=== PATIENT | male | born 1970 | race Two or more races ===

== ENCOUNTER 2020-06-02 19:32 | Observation (INO) | payer MEDICAID ==
[~2020-06-02] VITALS: Ht 170.2 cm; Wt 88.5 kg
--- NOTE | ~2020-06-02 | HEMODYNAMI ---
PATIENT:ORLY LAMB MEDICAL RECORD: [id number] : 68 LOCATION:[facility] D.2120 ADMISSION DATE: 06/02/20 Generatedon:06/03/20209:59 Patient name: ORLY LAMB Patient #: [id number] SSN: : 1970 Date of study: 06/03/2020 Page: Of Hemodynamic Procedure Report Patient Data Patient Demographics Procedure consent was obtained First Name: ORLY Gender: Male Last Name: ADONIS : 1970 Patient #: [id number] Age: 50 year(s) Race: Other Additional ID: [id number] Contact details Address: [place]KNOWN,[place]KNOWN State: [place] City: [facility] Zip code: [address] Past Medical History Allergies Allergen Reaction Date Comments Reported Other allergy 06/03/2020 PCN Admission Admission Data Admission Date: 06/02/2020 Admission Time: 20:55 Room #: D.2120 Height (in.): 67 BSA: 2 (m2) Height (cm.): 170.18 BMI: 30.54 (kg/m2) Weight (lbs.): 195 Weight (kg.): 88.45 Lab Results Lab Result Date: 06/03/2020 Lab Result Time: 0:00 Biochemistry Name Units Result Min Max BUN mg/dl 12 --(-*--)-- 7 18 Creatinine mg/dl 0.8 --(-*--)-- 0.6 1.3 eGFR ml/min 90 --(*---)-- 90 120 NONAFRICAN CBC Name Units Result Min Max Hematocrit % 45.6 --(-*--)-- 42 54 Hemoglobin g/dl 15.6 --(--*-)-- 13.5 17.5 Procedure Procedure Types Cath Procedure Diagnostic Procedure LHC LH w/Coronaries Sedation Charges Moderate Sedation up to 15 minutes PCI Procedure Coronary Stent Coronary Stent Initial Hemochron ACT Test Procedure Description Procedure Date Procedure Date: 06/03/2020 Procedure Start Time: 9:37 Procedure End Time: 9:57 Procedure Staff Name Function Messi Acosta MD Performing Physician Tammie Schilling RN Nurse Violeta Hernandez RT Monitor Neeta Moreno RT Monitor Debbie Silver RT Scrub Procedure Data Cath Procedure Fluoroscopy Diagnostic fluoroscopy Total fluoroscopy Time: 3 time: 3 min min Diagnostic fluoroscopy Total fluoroscopy dose: 772 dose: 772 mGy mGy Contrast Material Contrast Material Type Amount (ml) Isovue 300 82 Entry Location Entry Primary Successful Side Size Upsize Upsize Entry Closure Succes sful Closure Location (Fr) 1 (Fr) 2 (Fr) Remarks Device Remarks Femoral Right 5 Fr 6 Fr Exoseal artery Short Estimated blood loss: 10 ml Diagnostic catheters Device Type Used For End Catheter Placement MULTIPACK JL 4.0 5Fr Left Coronary catheter Angiography MULTIPACK 3DRC 5Fr Right Coronary catheter Angiography MULTIPACK Pigtail 5 Fr LV Angiography catheter Procedure Complications No complications Procedure Medications Medication Administration Route Dosage 0.9% NaCl I.V. 100 ml/hr Oxygen etCO2 Nasal cannula 2 l/min Lidocaine 2% added to field 20 Heparin Flush Bag added to field 2 bags (1000units/500ml NS) Versed I.V. 2 mg Fentanyl I.V. 50 mcg Heparin Bolus I.V. 5000 units Integrilin (Bolus I.V. 7.9 ml 2mg/ml) Plavix P.O. 600 mg Integrilin (Bolus wasted 2.1 ml 2mg/ml) Hemodynamics Rest BSA: 2 (m2) HGB: 15.6 (g/dl) O2 Consumption: Estimated: 240.31 (ml/min) O2 Consu mption indexed: Estimated:120.16 (ml/min/m) Heart Rate: 72 (bpm) Pressure Samples Time Site Value (mmHg) Purpose Heart Use Rate(bpm) 9:45 LV 97/0,3 Snapshot 74 Gradients Valve Time Site Site Mean SEP/DFP Peak To Heart Use 1 2 (mmHg) (sec/min) Peak Rate (mmHg) (bpm) Aortic 9:45 LV AO 73 Snapshots Pre Cath Intra NCS Post Cath Vital Signs Time Heart Resp SPO2 etCO2 NIBP (mmHg) Rhythm Pain Sedation Rate (ipm) (%) (mmHg) Status Level (bpm) 9:28:15 65 18 96 33.7 124/78(95) NSR 0 (11) 10(A) , No pain 9:32:33 77 16 97 33 121/71(86) NSR 0 (11) 10(A) , No pain 9:37:32 79 14 98 41.2 Measuring NSR 0 (11) 10(A) , No pain 9:37:40 87 16 98 33.7 117/80(90) NSR 0 (11) 10(A) , No pain 9:41:53 67 19 97 2.2 116/79(106) NSR 0 (11) 10(A) , No pain 9:46:04 76 18 97 44.9 127/80(102) NSR 0 (11) 10(A) , No pain 9:50:20 79 10 97 41.1 126/78(98) NSR 0 (11) 10(A) , No pain 9:54:28 86 10 98 34.4 111/77(107) NSR 0 (11) 10(A) , No pain Medications Time Medication Route Dose Verified Delivered Reason Notes Effectiveness by by 9:28:18 0.9% NaCl I.V. 100 Messi Tammie used for ml/hr Salley Shakir procedure MD POE 9:28:25 Oxygen etCO2 2 Messi Tammie used for Nasal l/min [facility] procedure cannula MD POE 9:28:31 Lidocaine 2% added 20ml Messi Swenson for local to vial [facility] anesthetic field MD BERMUDEZ 9:28:36 Heparin Flush added 2 Messi Messi used for Bag to bags [facility] procedure (1000units/500ml field MD BERMUDEZ NS) 9:34:57 Versed I.V. 2 mg Messi Tammie for sedation [facility] Osvaldo Schilling MD RN 9:35:02 Fentanyl I.V. 50 Messi Tammie for sedation mcg [facility] Osvaldo Schilling MD RN 9:48:03 Heparin Bolus I.V. 5000 Messi Tammie for verifi ed units DaveOsvaldo Schilling anticoagulation with Dr. MD POE [place] 9:48:15 Integrilin I.V. 7.9 Messi Tammie for (Bolus 2mg/ml) ml [facility] Osvaldo Schilling antiplatelet RN therapy 9:49:27 Plavix P.O. 600 Messi Tammie for mg [facility] Osvaldo Schilling antiplatelet RN therapy 9:49:35 Integrilin wasted 2.1 Messi Tammie for (Bolus 2mg/ml) ml St Osvaldo marques MD RN therapy Procedure Log Time Note 9:01:20 Informed consent obtained and on chart 9:02:10 Procedure Status Urgent Heart Cath (IP). 9:02:12 Time tracking: Regular hours (M-F 7:00 - 5:00) 9:02:17 Plan of Care:Hemodynamics will remain stable., Cardiac rhythm will remain stable., Comfort level will be maintained., Respiratory function will remain adequate., Patient/ family verbilizes understanding of procedure., Procedure tolerated without complication., Recovers from procedure without complications.. 9:02:22 H&P Date Dictated: 06/02/2020 ER History on chart.. 9::28 Lab Result : BUN 12 mg/dl 9::28 Lab Result : eGFR NONAFRICAN 90 ml/min 9::28 Lab Result : Creatinine 0.8 mg/dl 9::28 Lab Result : Hematocrit 45.6 % 9:05:28 Lab Result : Hemoglobin 15.6 g/dl 9:05:40 Patient Weight : 195 lbs 9:05:44 Patient Height : 67 inches 9:12:34 Neeta Moreno RT(R) sent for patient. Start room use. 9:27:04 Patient received from Med II to CCL 1 Alert and oriented. Tansferred to table in Supine position. 9:27:05 Warm blankets applied, and lamar hugger turned on for patient comfort. 9:27:06 Correct patient and procedure confirmed by team. 9:27:07 ECG and BP/O2 sat monitors applied to patient. 9:27:09 Vital chart was started 9:27:17 Baseline sample Acquired. 9:27:25 Rhythm: sinus rhythm 9:27:26 Full Disclosure recording started 9::27 9:27:28 Pre-procedure instructions explained to patient. 9:27:29 Pre-op teaching completed and patient verbalized understanding. 9:27:34 Family in patients room. 9:27:37 Patient NPO since Midnight. 9:27:59 Patient allergic to Other allergyPCN 9:28:04 Is the patient allergic to Iodine/contrast media? No. 9:28:10 Was the patient premedicated? No 9:28:18 0.9% NaCl 100 ml/hr I.V. was administered by Tammie Schilling RN; used for procedure; Verbal order read back and verified. 9:28:18 ACC The patient was administered the following blood thiners within the last 24 hours: ACCLovenox 9:28:23 Patient diabetic? Yes. 9:28:25 Oxygen 2 l/min etCO2 Nasal cannula was administered by Tammie Schilling RN; used for procedure; Verbal order read back and verified. 9:28:26 If diabetic: On Metformin? Yes 9:28:31 Lidocaine 2% 20ml vial added to field was administered by Messi Acosta MD; for local anesthetic; Verbal order read back and verified. 9:28:34 If on Metformin: Last Dose? 06/02/2020 9:28:36 Heparin Flush Bag (1000units/500ml NS) 2 bags added to field was administered by Messi Acosta MD; used for procedure; Verbal order read back and verified. 9:28:39 ----Pre-sedation anethsthesia assessment.---- 9:28:44 Previous problem with sedation/anesthesia? No ? 9:28:46 Snore? Yes 9:28:49 Sleep apnea? No 9:28:53 Opens mouth fully? Yes 9:28:56 Sticks out tongue? Yes 9:28:59 Airway obstruction? No ? 9:29:04 Dentures? No ? 9:29:15 Pre procedure: right dorsailis pedis pulse 2+ Normal; easily identifiable; not easily obliterated 9:29:29 IV patent on arrival in left forearm with 0.9% NaCl at [facility]. 9:29:41 Lab results completed and on chart. 9:29:49 Right groin area was prepped with chlora-prep and draped in sterile fashion 9:29:52 Alarms reviewed by R. N. 9:29:53 Sharps counted by scrub and verified by R.N. 9:30:00 Use device set Femoral Dx 9:30:01 ACIST Syringe (10278) opened to sterile field. 9:30:02 Bag Decanter (2001S) opened to sterile field. 9:30:02 Medline Cath Pack ([id number]) opened to sterile field. 9:30:04 ACIST Hand Control (95544) opened to sterile field. 9:30:04 ACIST Manifold (13164) opened to sterile field. 9:30:06 DIAGNOSTIC Multipack 5Fr catheter set ([id number]) opened to sterile field. 9:30:06 Tegaderm 4 x 4 (1626W) opened to sterile field. 9:30:08 SHEATH 5FR [place] (LDH532) opened to sterile field. 9:30:08 EMERALD Guide Wire (253-585) opened to sterile field. 9:31:18 Physician arrived 9:31:19 --------ALL STOP TIME OUT------ 9:31:19 Final Timeout: patient, procedure, and site verified with staff and physician. All members of the team are in agreement. 9:31:22 Right groin site verified by team. 9:31:29 Fire Safety Assessment: A--An alcohol-based skin anteseptic being used preoperatively., C--Open oxygen or nitrous oxide is being used., D--An ESU, laser, or fiber-optic light is being used. 9:31:32 Physical assessment completed. ASA score P 2 - A patient with mild systemic disease as per Messi Acosta MD. 9:31:38 1) 90+ Normal kidney functon but urine findings or structural abnormalities or genetic trait point to kidney disease. 9:31:42 Maximum allowable contrast dose (3.7 X eGFR X 0.75)250 ml. 9:31:50 Sedation plan: IV Moderate Sedation Medication:Versed, Fentanyl 9:34:57 Versed 2 mg I.V. was administered by Tammie Schilling RN; for sedation; Verbal order read back and verified. 9:35:02 Fentanyl 50 mcg I.V. was administered by Tammie Schilling RN; for sedation; Verbal order read back and verified. 9:36:35 Risk of Mortality: 0.1 9:36:40 Risk of blood transfusion: 0.1 9:36:44 Risk of GABI: 0.4 9:36:50 Procedure started. 9:37:34 Local anesthetic to right femoral artery with Lidocaine 2% by Messi Acosta MD.INITIAL ACCESS ONLY 9:37:45 Zero performed for pressure channel P1 9:38:05 Zero performed for pressure channel P1 9:38:28 A 5 Fr sheath was inserted into the Right Femoral artery 9:38:35 A MULTIPACK JL 4.0 5Fr catheter was advanced over the wire and used for Left Coronary Angiography. 9:39:23 LCA angiography performed. 9:39:31 Injector settings: Ml/sec: 3, Volume: 6, 9:42:46 Catheter removed. 9:43:16 INFLATOR Merit BasixCompak (QM9388) opened to sterile field. 9:43:18 SHEATH 6FR [place] (JXO273) opened to sterile field. 9:43:31 WHISPER 300cm guide wire ([id number]) opened to sterile field. 9:44:20 GUIDE 6FR XB 3.5 catheter ([id number]) opened to sterile field. 9:44:34 A MULTIPACK 3DRC 5Fr catheter was advanced over the wire and used for Right Coronary Angiography. 9:44:38 RCA angiography performed. 9:44:42 Injector settings: Ml/sec: 3, Volume: 6, 9:44:46 Catheter removed. 9:44:51 A MULTIPACK Pigtail 5 Fr catheter was advanced over the wire and used for LV Angiography. 9:45:33 EF : 55 % 9:45:38 LV gram done using MONGE 9:45:42 Injector settings: Ml/sec: 5, Volume: 15, 9:45:46 Catheter removed. 9:45:47 Proceeding to intervention. 9:45:54 ACC Pre-intervention FROY Flow is 3. 9:46:16 Sheath upsized to a 6 Fr Short. 9:46:47 Pre PCI Site: [place] pCirc has 90% stenosis. 9:46:56 6 Fr XB3.5 guide catheter was inserted over the wire 9:47:21 LCA angiography performed. 9:48:03 Heparin Bolus 5000 units I.V. was administered by Tammie Schilling RN; for anticoagulation; verified with Dr. Pittman Verbal order read back and verified. 9:48:15 Integrilin (Bolus 2mg/ml) 7.9 ml I.V. was administered by Tammie Shakir RN; for antiplatelet therapy; Verbal order read back and verified. 9:49:27 Plavix 600 mg P.O. was administered by Tammie Schilling RN; for antiplatelet therapy; Verbal order read back and verified. 9:49:31 WHISPER 300 wire advanced. 9:49:35 Integrilin (Bolus 2mg/ml) 2.1 ml wasted was administered by Tammie Schilling RN; for antiplatelet therapy; Verbal order read back and verified. 9:51:55 Place stent Inflation Number: 1 A TRE OTW 3.0 x 18 stent ([id number]) was prepped and advanced across the Prox CX . The stent was deployed at 14 [place] for 0:33 (min:sec) . 9:52:36 Stent catheter was removed intact over wire. 9:52:39 ACC Post-intervention FROY Flow is 3. 9:52:48 Post PCI Site: [place] pCirc has 0% stenosis. 9:52:51 Wire removed. 9:52:52 Guide catheter removed. 9:53:02 EXOSEAL 6Fr (EX600) opened to sterile field. 9:53:41 Sheath removed intact; hemostasis achieved with Exoseal to the Right Femoral artery. 9:53:44 Procedure ended.(Physican Out) 9:53:51 Contrast amount:Isovue 300 82ml. 9:53:55 Maximum allowable dose exceeded? No. 9:53:57 Sharps counted by scrub and verified by R.N. 9:54:04 Fluoroscopy time 03.00 minutes. 9:54:09 Fluoroscopy dose: 772 mGy 9:54:09 Flurop Dose total: 772 9:54:18 Dose Area Product 64809 mGy/cm. 9:54:26 Post-op/insertion site Right Femoral artery dressed using a 4 x 4 and Tegaderm. 9:54:33 Post-procedure physical assessment completed. ASA score P 2 - A patient with mild systemic disease as per Messi Acosta MD. 9:54:38 Post procedure rhythm: unchanged. 9:54:42 Estimated blood loss: 10 ml 9:54:43 Post procedure instruction explained to patient.Patient verbalizes understanding. 9:54:44 Patient needs reinforcement of post procedure teaching. 9:55:17 ACT drawn and resulted at 230 seconds. (normal therapeutic range 180-240 seconds). 9:55:48 Procedure type changed to Cath procedure, Diagnostic procedure, LHC, C w/Coronaries, Sedation Charges, Moderate Sedation up to 15 minutes, PCI procedure, Coronary Stent, Coronary Stent Initial, Hemochron ACT Test 9:55:50 Procedure and supply charges have been captured, reviewed, submitted and are correct. 9:56:35 Procedure Complication : No complications 9:56:38 Vital chart was stopped 9:56:46 [facility] Findings: MVD- PCI performed (see procedure note) 9:56:48 Operative report dictated upon procedure completion. 9:56:49 See physician's report for complete and final results. 9:56:51 Report given to [facility]. 9:56:56 Patient transfered to [facility] with Bed. 9:56:59 Procedure ended. 9:56:59 Full Disclosure recording stopped 9:57:08 ACC-PCI Only Patient was given prescriptions, or instructed by Messi Acosta MD to start/continue the following medications upon discharge: Plavix 9:57:11 End room use (Document Last) Intervention Summary Intervention Notes Time ActionType Lesion and Equipment Action# Pressure Duration Attributes Used 9:51:55 Place stent Prox CX TRE OTW 3.0 1 14 00:33 x 18 stent ([id number]) Device Usage Item Name Manufacture Quantity Catalog Hospital Part Current Mini [facility] Lot# / Number Charge Number Stock Stock Serial# Code ACIST Syringe Acist 1 68101 688611 936684 640576 20 (59980) Medical Systems Inc Bag Decanter Microtek 1 2001S 930102 59956 547618 5 () Medical Inc. Medline Cath Medline 1 [id number] 303110 58773 843597 5 Pack ([id number]) ACIST Hand Acist 1 66718 272279 097926 352225 5 Control Medical (81076) Systems Inc ACIST Acist 1 95339 214929 795609 127713 5 Manifold Medical (33156) Systems Inc DIAGNOSTIC Cardinal 1 [id number] 171768 04559 685539 30 Multipack 5Fr Health catheter set (YO7640) Tegaderm 4 x 3M 1 1626W 288892 183913 399189 5 4 (1626W) SHEATH 5FR Terumo 1 IAI046 156966 034927 634041 5 [place] (XAL423) EMERALD Guide Cardinal 1 502455 456961 683424 808722 5 Wire Health (502455) MULTIPACK JL Cardinal 1 976177 5 4.0 5Fr Health catheter INFLATOR Merit 1 FU2387 831705 179473 012472 15 [facility] Medical BasixCompak (WJ0663) SHEATH 6FR Terumo 1 SSN194 380409 693248 335397 40 [place] (JDJ324) WHISPER 300cm William 1 [id number] 590499 815341 332591 5 guide wire Vascular ([id number]) GUIDE 6FR XB Cardinal 1 [id number] 634922 273141 667535 2 3.5 catheter Health (66022346) MULTIPACK Cardinal 1 763638 5 3DRC 5Fr Health catheter MULTIPACK Cardinal 1 300890 5 Pigtail 5 Fr Health catheter TRE OTW 3.0 Medtronic 1 [id number] 600395 0953578 016052 5 [id number] x 18 stent ([id number]) EXOSEAL 6Fr Cardinal 1 EX600 307800 684162 846746 10 (EX600) Health Signature Audit [place] Stage Time Signature Unsigned Intra-Procedure 06/03/2020 Debbie 9:57:32 AM Adrianne RT(R) (CV) Intra-Procedure 06/03/2020 Tammie Schilling 9:58:11 AM RN Intra-Procedure 06/03/2020 Messi Carroll 9:59:10 AM Osvaldo BERMUDEZ [facility] [address] [place] [address]
[2020-06-02] MEDS ORDERED: BP MED (19:44)
[2020-06-02] MEDS ORDERED: GLUCOPHAGE500 MG PO (19:44)
[2020-06-02 20:04] LABS: BASOPHILS 0.2 % (0-2); EOSINOPHILS 0.5 % (0-7); HEMATOCRIT 45.6 % (42.0-54.0); HEMOGLOBIN 15.6 g/dL (13.5-17.5); IMMATURE GRANULOCYTES 0.2 % (0-5); LYMPHOCYTES 37.2 % (15-50); MCH 31.1 pg (26.0-34.0); MCHC 34.2 g/dL (31.0-37.0); MEAN PLATELET VOLUME 8.6 fL (7.4-10.4); MONOCYTES 6.4 % (2-11); NEUTROPHILS 55.5 % (40-80); PLATELET COUNT 213 10x3/uL (130-400); RBC 5.01 10x6/uL (4.20-6.10); WBC 9.1 10x3/uL (4.8-10.8)
[2020-06-02 20:14] LABS: CALC OSMOLALITY 270 mosm/kg (275-300); CALCIUM 10.1 mg/dL (8.5-10.1); CARBON DIOXIDE 26.6 mmol/L (21.0-32.0); CHLORIDE - SERUM 100 mmol/L (98-107); CREATININE - SERUM 0.8 mg/dL (0.6-1.3); GLUCOSE 120 mg/dL (74-106); POTASSIUM - SERUM 3.5 mmol/L (3.5-5.1); SODIUM 135 mmol/L (136-145); UREA NITROGEN 12 mg/dL (7-18); eGFR NON AFRICAN AMERICAN > 90 mL/min (90-120)
[2020-06-02 20:20] LABS: APTT 26.1 SECONDS (22.8-39.4); INR 1.03 (0.85-1.17); PROTIME 13.4 SECONDS (11.6-15.0)
[2020-06-02 20:35] LABS: ALBUMIN 3.9 g/dL (3.4-5.0); ALKALINE PHOSPHATASE 85 U/L (30-120); ALT (SGPT) 31 U/L (10-68); BILIRUBIN - TOTAL 0.56 mg/dL (0.2-1.3); CKMB 2.8 U/L (0.0-3.6); CREATINE KINASE 192 UL (21-232); PRO BNP 283 pg/mL (0-125); PROTEIN - SERUM 7.7 g/dL (6.4-8.2)
[2020-06-02 20:39] LABS: TROPONIN-I 0.149 ng/mL (0.000-0.060)
[2020-06-02 21:17] VITALS: BP 142/96
--- NOTE | 2020-06-02 21:23 | NUR ---
ANSWERED PT'S CALL LIGHT, PT GIVEN URINAL, DENIES ANY FURTHER NEEDS AT THIS TIME. WILL CONTINUE TO MONITOR.
--- NOTE | 2020-06-02 22:11 | NUR ---
PT GIVEN SANDWICH AND MILK, DENIES ANY FURTHER NEEDS AT THIS TIME. CALL LIGHT WITHIN REACH. WILL CONTINUE TO MONITOR.
[2020-06-02 22:45] VITALS: BP 134/90
--- NOTE | 2020-06-02 22:49 | NUR ---
REPORT CALLED TO ANGEL, PT'S ROOM DIRTY. WILL CALL WHEN CLEAN.
--- NOTE | 2020-06-02 23:40 | NUR ---
PT'S ROOM STILL DIRTY AT THIS TIME.
[2020-06-03 00:29] VITALS: BP 126/87
[2020-06-03] MEDS ORDERED: LIPITOR20 MG PO (01:46)
[2020-06-03] MEDS ORDERED: LISINOPRIL20 MG PO (01:46)
[2020-06-03] MEDS ORDERED: GLIPIZIDE10 MG PO (01:47)
[2020-06-03 02:02] LABS: CKMB 7.5 U/L (0.0-3.6); CREATINE KINASE 188 UL (21-232)
[2020-06-03 02:05] LABS: TROPONIN-I 0.912 ng/mL (0.000-0.060)
--- NOTE | 2020-06-03 02:18 | NUR ---
DR. SPICER CALLED FOR JUMP IN TROPONIN. IT WENT FROM 0.[address] SPICER SAID HE WOULD SEE THEM IN THE MORNING.
[2020-06-03 02:41] VITALS: BP 112/74
[2020-06-03 04:00] VITALS: BP 121/71
--- NOTE | 2020-06-03 05:06 | NUR ---
PATIENT IS RESTING COMFORTABLLY IN BED. HE HAS NO COMPLAINTS. HIS TROPONINS HAVE GONE UP. WE WILL CONTINUE TO MONITOR HIS CHEST AND NECK PRESSURE, AND HIS TROPONINS.
[2020-06-03 07:45] LABS: CKMB 11.7 U/L (0.0-3.6); CREATINE KINASE 205 UL (21-232)
[2020-06-03 07:46] LABS: TROPONIN-I 3.189 ng/mL (0.000-0.060)
[2020-06-03 09:01] LABS: BASOPHILS 0.4 % (0-2); EOSINOPHILS 1.1 % (0-7); HEMATOCRIT 43.1 % (42.0-54.0); HEMOGLOBIN 14.6 g/dL (13.5-17.5); IMMATURE GRANULOCYTES 0.2 % (0-5); LYMPHOCYTES 38.3 % (15-50); MCHC 33.9 g/dL (31.0-37.0); MCV 91.5 fL (80.0-100.0); MEAN PLATELET VOLUME 9.2 fL (7.4-10.4); MONOCYTES 6.4 % (2-11); NEUTROPHILS 53.6 % (40-80); PLATELET COUNT 230 10x3/uL (130-400); RBC 4.71 10x6/uL (4.20-6.10); RDW 12.2 % (11.5-14.5); WBC 8.5 10x3/uL (4.8-10.8)
[2020-06-03 09:20] LABS: ALT (SGPT) 28 U/L (10-68); CALC OSMOLALITY 277 mosm/kg (275-300); CARBON DIOXIDE 25.3 mmol/L (21.0-32.0); CHLORIDE - SERUM 102 mmol/L (98-107); CHOL - HDL RATIO 4.2 ratio (2.3-4.9); CHOLESTEROL, TOTAL 134 mg/dL (0-200); CREATININE - SERUM 0.9 mg/dL (0.6-1.3); GLUCOSE 172 mg/dL (74-106); HDL CHOLESTEROL 32 mg/dL (32-96); LDL CHOLESTEROL 60 mg/dL (0-100); LDL-HDL RATIO 1.9 ratio (1.5-3.5); SODIUM 137 mmol/L (136-145); TRIGLYCERIDE 211 mg/dL (30-200); UREA NITROGEN 13 mg/dL (7-18); eGFR NON AFRICAN AMERICAN > 90 mL/min (90-120)
[2020-06-03 09:21] LABS: POTASSIUM - SERUM 4.4 mmol/L (3.5-5.1)
[2020-06-03 09:26] VITALS: BP 103/60
--- NOTE | 2020-06-03 10:10 | NUR ---
RECEIVED PT FROM CT SCAN TECHNICIAN. RIGHT FEM IS C/D/I WITH NO S/S OF HEMATOMA PRESENT. NO S/S OF DISTRESS. VSS AND WNL. NS INFUSING @100ML/HR VIA L.AC PIV. WILL CTM.
[2020-06-03 12:00] VITALS: BP 96/54
[2020-06-03 12:38] VITALS: Ht 170.2 cm; Wt 88.5 kg
[2020-06-03] MEDS ORDERED: PLAVIX75 MG PO (15:02)
[2020-06-03] MEDS ORDERED: ASPIRIN81 MG PO (15:09)
--- NOTE | 2020-06-03 15:37 | NUR ---
PT DISCHARGED HOME VIA WHEELCHAIR WITH FAMILY. PIV REMOVED WITH CATHETER TIP FULLY INTACT. TELEMETRY REMOVED AND RETURNED. PT SIGNED PROPER DISCHARGE INSTRUCTIONS AND REMOVED ALL VALUABLES FROM THE ROOM.
--- NOTE | 2020-06-04 10:04 | OP ---
PATIENT NAME: ORLY LAMB MEDICAL RECORD: [id number] :68 LOCATION:D.M2 D.0 ADMISSION DATE:06/02/20 SURGEON: EARL OLIVEROS MD DATE OF OPERATION: 06/03/2020 PROCEDURE: Left heart catheterization, selective coronary angiography, right femoral artery approach. CATHETERS: A 5-Montenegrin sheath, 5/4 left and right Marry, 5/4 pig. The procedure was well tolerated. The patient returned to olvera, sheath removed. ExoSeal device placed. FINDINGS: Left ventriculography in 30-degree MONGE view: Normal wall motion and normal systolic function. CORONARY ANATOMY: LEFT MAIN: Left main is free of disease. LAD: Free of disease. CIRCUMFLEX: Obviously infarct related artery with large OM, subtotal stenosis 90% or better. RIGHT CORONARY ARTERY: Large, dominant right, free of disease. IMPRESSION: Infarct related artery circumflex. PLAN: Intervention momentarily. DESCRIPTION OF PROCEDURE: A 5-Montenegrin sheath was exchanged for a 6-Montenegrin sheath. An XB LAD guide catheter site provided excellent guide catheter support followed by 300 cm whisper wire was placed across tightly occluded circumflex distal portion of the vessel. Stent deployed was a 3.0 x 18 mm Gustavo drug-eluting stent up to 14 atmospheres, excellent resolution of 90% stenosis, no significant residual. FROY flow was 3 throughout the procedure. Integrilin was used during the case. Sheath was closed with ExoSeal device. Paxil in lab. TRANSINT:[id number] Voice Confirmation ID: [id number] DOCUMENT ID: [id number] EARL OLIVEROS MD at 1004 CC: [id number] DICTATION DATE: 06/03/20 1003 [employer] SALES: 06/03/20 2133 DIS IN 06/03/20 [address] [place] [address]
== END 2020-06-03 15:38 | disposition home or self-care (01) ==
LOC: D.ER 19:32 → OBSVTIME 20:55 → D.M2 20:55
PROVIDERS: Emergency Medicine; Internal Medicine Cardiovascular Disease; ADMIT Family Medicine; ATTEND Family Medicine
DX: I21.4 Non-ST elevation (NSTEMI) myocardial infarction (principal); I20.0 Unstable angina; E11.65 Type 2 diabetes mellitus with hyperglycemia; I10 Essential (primary) hypertension; K21.9 Gastro-esophageal reflux disease without esophagitis